=== PATIENT | female | born 1980 | race Caucasian/White ===

== ENCOUNTER 2022-08-13 20:03 | Emergency (ER) | payer OTHER, SELFPAY ==
--- NOTE | ~2022-08-13 | CT_ITS ---
EXAMINATION: CT lumbar spine wo con DATE: 08/13/2022 21:45 INDICATION: Low back pain, hx of laminectomy eval for fracture . TECHNIQUE: Computed tomography (CT) of the lumbar spine was performed without intravenous contrast. A utomated exposure control and iterative reconstruction technique were employed. The dose-length produ ct was 1195.44 mGy-cm. COMPARISON: None. FINDINGS: 5 nonrib-bearing lumbar-type vertebral bodies. Pedicles intact. Normal vertebral body align ment. Vertebral body heights preserved. Multilevel marginal osteophytosis in the lower thoracic and l umbar spine. Disc space narrowing, moderate at L3-4 and severe at L5-S1. Moderate bilateral neural fo raminal narrowing at L3-4 and L5-S1. Severe central canal stenosis at L5-S1. Moderate facet arthropat hy at L1-2, L2-3, and L4-5. Significant bilateral sacral sclerosis with early erosions. IMPRESSION: No acute fracture or traumatic malalignment in the lumbar spine. Severe degenerative disc disease and central canal narrowing at L5-S1. Bilateral sacroiliitis. Reviewed, dictated and finalized at location K. IMPRESSION: No acute fracture or traumatic malalignment in the lumbar spine. Severe degener ative disc disease and central canal narrowing at L5-S1. Bilateral sacroiliitis .
[2022-08-13 20:30] VITALS: BP 151/88; PULSE 103; RESP 18; TEMP 36.6; O2SAT 100
--- NOTE | 2022-08-13 21:17 | ED.BACK ---
HPI - Back Pain/Injury General Chief Complaint: Back Pain/Injury Stated Complaint: back pain, chronic Time Seen by Provider: 08/13/22 20:58 History of Present Illness HPI Narrative: This is a 42-year-old female with past medical history of [place], laminectomy microdiscectomy with revision in 2017, who presents to the emergency department complaining of low back pain. She states she has chronic low back pain though over the last couple of days she is noted worsening now sensitive to touch. She denies associated fevers, chills, swelling, or purulent drainage. She rates her pain as 8 out of 10, radiating down the right leg, associated with some remedy numbness but no saddle anesthesia or loss of bowel or bladder control. Related Data Allergies Allergy/AdvReac Type Severity Reaction Status Date / Time cefaclor [From Ceclor] Allergy Joint Pain Verified 08/13/22 20:05 hydromorphone [From Dilaudid] Allergy Hives Verified 08/13/22 20:06 Review of Systems Review of Systems: CONSTITUTIONAL: Denies fever, chills, or sweats. EYES: Denies visual changes, redness, or discharge. ENT: Denies rhinorrhea, congestion, sore throat, or otalgia. CARDIOVASCULAR: Denies chest pain, palpitations, or edema. RESPIRATORY: Denies cough or dyspnea. GASTROINTESTINAL: Denies abdominal pain, nausea, vomiting, or diarrhea. GENITOURINARY: Denies dysuria or hematuria. SKIN: Denies rash or itching. MUSCULOSKELETAL: Back pain denies joint pain, or myalgia. NEUROLOGIC: Right leg paresthesias denies headache, numbness, dizziness, or weakness. PSYCHIATRIC: Denies anxiety or depression. Exam Narrative: GENERAL: Well-developed, well-nourished, appears uncomfortable HEAD: Normocephalic, atraumatic. EYES: PERRLA and EOMI. ENT: Nares clear, no rhinorrhea or epistaxis. Mucous membranes moist. Oropharynx without tonsillar hypertrophy exudate or other lesions. NECK: Supple. No adenopathy or masses. No carotid bruits or JVD CHEST: Clear to auscultation. No respiratory distress. No wheezes rales or rhonchi HEART: Regular rate and rhythm. No murmur heard. Normal peripheral pulses. ABDOMEN: Soft, nontender, nondistended, normal active bowel sounds. BACK: Well-healed midline surgical scar consistent with laminectomy, tender to palpation over the midline lumbar spine with increasing tenderness to palpation over the right paraspinal region. No noted erythema, induration, or open wounds. EXTREMITIES: Normal range of motion. No edema. SKIN: Warm, dry, no rash. NEURO: No focal deficits. Alert and oriented x3. PSYCH: Normal mood and affect. Course Course Emergency Course: 22:30 - STATrad admission shows hypertrophic degenerative changes with multilevel disc protrusions though no indication of fracture or infectious process. Reevaluated patient, she states her pain is improved. Discussed return emergency precautions including signs/symptoms concerning for discitis and cauda equina. Patient voiced understanding is comfortable with the plan. All questions answered to her satisfaction. Vital Signs Vital signs: Vital Signs Temperature 97.8 F 08/13/22 20:30 Pulse Rate 103 H 08/13/22 20:30 Respiratory Rate 18 08/13/22 20:30 Blood Pressure 151/88 H 08/13/22 20:30 Pulse Oximetry 100 08/13/22 20:30 Oxygen Delivery Room Air 08/13/22 20:30 Temperature 97.8 F 08/13/22 20:30 Pulse Rate 103 H 08/13/22 20:30 Respiratory Rate 18 08/13/22 20:30 Blood Pressure 151/88 H 08/13/22 20:30 Pulse Oximetry 100 08/13/22 20:30 Oxygen Delivery Room Air 08/13/22 20:30 MDM - Back Pain/Injury MDM Narrative Medical decision making narrative: Plan: Imaging, pain control Differential Diagnosis Differential diagnosis: Likely lumbar radiculopathy, sciatica, strain of lumbar region and other (Lumbar spine fracture, other) Discharge Plan Discharge Clinical Impression: Sciatica, Low back pain Patient Disposition: Home, Self-Care Condition: Improved Instruc
--- NOTE | 2022-08-13 21:28 | PC.NURSE ---
Called pharmacy for Gabapentin and Lidocaine patch for pt
[2022-08-13] MEDS: ACETAMINOPHEN 500 MG TABLET 1000 MG PO (21:53)
[2022-08-13] MEDS: GABAPENTIN 300 MG CAPSULE PO (21:53)
[2022-08-13] MEDS: LIDOCAINE 5% PATCH 1 PATCH TRANSDERM (21:53)
== END 2022-08-13 22:45 | disposition home or self-care (01) ==
PROVIDERS: Emergency Provider Preventive Medicine Aerospace Medicine
DX: M54.41 Lumbago with sciatica, right side (principal); I25.2 Old myocardial infarction
CPT/HCPCS: 72131; 99284; A9270